=== PATIENT | female | born 1975 | race Native Hawaiian/Other Pacific Islander ===

== ENCOUNTER 2020-08-05 08:31 | Emergency (ER) | payer BC ==
[~2020-08-05] VITALS: Ht 170.2 cm; Wt 72.6 kg
[2020-08-05 08:31] VITALS: TEMP 99.1
[2020-08-05] MEDS ORDERED: CLON0.5T36 PO (08:47)
[2020-08-05] MEDS ORDERED: EUTHYROX25 MCG PO (08:47)
[2020-08-05 09:16] LABS: SODIUM 140 mmol/L (136-145)
[2020-08-05 09:24] LABS: PLATELET COUNT 383 K/uL (152-353)
[2020-08-05 09:46] LABS: PARTIAL THROMBOPLASTIN TIME 24.4 SECONDS (24.5-33.6)
[2020-08-05 10:12] VITALS: BP 124/91
== END 2020-08-05 10:12 | disposition home or self-care (01) ==
LOC: ED 08:37
PROVIDERS: Hospitalist
DX: R55 Syncope and collapse (principal); R53.1 Weakness
CPT/HCPCS: 36415; 80053; 80320; 81000; 82550; 83880; 84484; 85027; 85379; 85610; 85730; 93005; 96360; 96374; 99284; J2405

== ENCOUNTER → 2021-01-17 | Outpatient (CLI) | payer BC, OTHER ==
[~2021-01-17] MED LIST: CLON0.5T36 PO; EUTHYROX25 MCG PO
== END ==
LOC: INF 16:32
PROVIDERS: ATTEND Internal Medicine
DX: Z23 Encounter for immunization (principal)
CPT/HCPCS: 96372

== ENCOUNTER 2021-02-10 08:08 | Outpatient (CLI) | payer BC, OTHER | END 2021-02-10 23:59 | disposition home or self-care (01) | LOC: INF 08:08 | PROVIDERS: ATTEND Internal Medicine | DX: Z23 Encounter for immunization (principal) | CPT/HCPCS: 96372 ==